=== PATIENT | male | born 1945 | race Caucasian/White ===

== ENCOUNTER 2019-03-28 20:17 | Emergency (ER) | payer MEDICARE ==
--- NOTE | 2019-03-28 20:47 | ER Document Report ---
ED Medical Screen (RME) - General Chief Complaint: Urinary Problem Stated Complaint: URINATING BLOOD Time Seen by Provider: 03/28/19 20:41 Primary Care Provider: ASHLI HOLDEN MD [Primary Care Provider] - Follow up as needed Mode of Arrival: Wheelchair Information source: Patient Notes: 73-year-old male presented to ED for complaint of blood in his urine. He states this started this afternoon. He states he had his prostate scraped and bladder clamps placed on 02/10/2019, he had a heart cath and 2 stents placed on Sunday. The urinary bleeding started today. He states in November of this year he weighed 243 last week he weighed 223 and today he weighs 212 he states he just continues to lose weight. He denies any pain or nausea or vomiting he just does not feel good. He states he also has swelling to his left lower abdomen. He has no tenderness to palpation to this abdomen. Patient is alert oriented respirations regular and unlabored answering questions appropriately. I have greeted and performed a rapid initial assessment of this patient. A comprehensive ED assessment and evaluation of the patient, analysis of test results and completion of medical decision making process will be conducted by an additional ED providers. Dictation of this chart was performed using voice recognition software; therefore, there may be some unintended grammatical errors. TRAVEL OUTSIDE OF THE [place] IN LAST 30 DAYS: No - Related Data Allergies/Adverse Reactions: meperidine [From Demerol] Adverse Reaction (Verified 03/28/19 20:22) Physical Exam - Vital signs Vitals: Temp Pulse Resp BP Pulse Ox 97.8 F 81 18 92/59 L 97 03/28/19 20:27 03/28/19 20:27 03/28/19 20:27 03/28/19 20:27 03/28/19 20:27 Course - Vital Signs Vital signs: Temp Pulse Resp BP Pulse Ox 97.8 F 81 18 92/59 L 97 03/28/19 20:27 03/28/19 20:27 03/28/19 20:27 03/28/19 20:27 03/28/19 20:27 Doctor's Discharge - Discharge Referrals: ASHLI HOLDEN MD [Primary Care Provider] - Follow up as needed
[2019-03-28] MEDS ORDERED: NORMAL SALINE 1000 ML 1,000 ML IV ONE (20:56)
[2019-03-28 21:16] LABS: ABSOLUTE BASOPHILS # (AUTO) 0.2 10^3/uL (0.0-0.2); ABSOLUTE EOSINOPHILS # (AUTO) 0.4 10^3/uL (0.0-0.6); ABSOLUTE LYMPHOCYTES (AUTO) 4.7 10^3/uL (0.5-4.7); ABSOLUTE NEUT (AUTO) 9.7 10^3/uL (1.7-8.2); BASOPHILS % (AUTO) 1.1 % (0-2); EOSINOPHILS % (AUTO) 2.6 % (0-6); HEMATOCRIT 44.2 % (37.9-51.0); HEMOGLOBIN 14.7 g/dL (13.5-17.0); LYMPHOCYTES % (AUTO) 29.5 % (13-45); MEAN CORPUSCULAR HEMOGLOBIN 28.7 pg (27.0-33.4); MEAN CORPUSCULAR HGB CONC 33.2 g/dL (32.0-36.0); MEAN CORPUSCULAR VOLUME 87 fl (80-97); MONOCYTES % (AUTO) 6.2 % (3-13); PLATELET COUNT 382 10^3/uL (150-450); RED CELL DISTRIBUTION WIDTH 14.4 % (11.5-14.0); SEGMENTED NEUTROPHILS % (AUTO) 60.6 % (42-78); TOTAL CELLS COUNTED % (AUTO) 100 %
[2019-03-28 21:36] LABS: ALANINE AMINOTRANSFERASE 19 U/L (21-72); ALBUMIN 4.4 g/dL (3.5-5.0); ALKALINE PHOSPHATASE 111 U/L (38-126); ANION GAP 15 (5-19); ASPARTATE AMINO TRANSFERASE 25 U/L (17-59); BILIRUBIN,DIRECT 0.2 mg/dL (0.0-0.4); BILIRUBIN,TOTAL 0.3 mg/dL (0.2-1.3); BLOOD UREA NITROGEN 20 mg/dL (7-20); CARBON DIOXIDE 23 mmol/L (22-30); CHLORIDE 104 mmol/L (98-107); GLUCOSE 210 mg/dL (75-110); POTASSIUM 4.9 mmol/L (3.6-5.0); SODIUM 141.5 mmol/L (137-145); TOTAL PROTEIN 7.4 g/dL (6.3-8.2)
--- NOTE | 2019-03-28 21:38 | ER Document Report ---
ED GI/ - General Chief Complaint: Urinary Problem Stated Complaint: URINATING BLOOD Time Seen by Provider: 03/28/19 20:41 Primary Care Provider: ASHLI HOLDEN MD [Primary Care Provider] - Follow up as needed Mode of Arrival: Wheelchair Notes: Patient is a 73-year-old male that comes to the emergency department for chief complaint of blood in the urine. Started this afternoon, he states he urinated 3 times this afternoon and all of these episodes were grossly bloody. He reports having his prostate scraped and bladder clamps placed on 02/10/2019, he also had a cardiac catheterization and 2 stents placed on Sunday and was placed on Plavix at that time. He states he generally just does not feel good but he denies nausea, vomiting, abdominal pain. The Urologist was reportedly Dr. Kahn, Matchbook Assembler was Dr. Brown, both at [facility]. Medical history includes BPH, CAD, hypertension, insulin dependent diabetes. TRAVEL OUTSIDE OF THE [place] IN LAST 30 DAYS: No - Related Data Allergies/Adverse Reactions: meperidine [From Demerol] Adverse Reaction (Verified 03/28/19 20:22) Past Medical History - General Information source: Patient, Relative - Social History Smoking Status: Never Smoker Chew tobacco use (# tins/day): No Frequency of alcohol use: None Drug Abuse: None Lives with: Family Family History: Reviewed & Not Pertinent Patient has suicidal ideation: No Patient has homicidal ideation: No - Past Medical History Cardiac Medical History: Reports: Hx Coronary Artery Disease, Hx Hypercholesterolemia, Hx Hypertension Endocrine Medical History: Reports: Hx Diabetes Mellitus Type 2 Renal/ Medical History: Denies: Hx Peritoneal Dialysis Past Surgical History: Reports: Hx Cardiac Catheterization, Hx Urinary Tract Surgery - Prostate scraping and bladder stents Review of Systems - Review of Systems Constitutional: No symptoms reported EENT: No symptoms reported Cardiovascular: No symptoms reported Respiratory: No symptoms reported Gastrointestinal: No symptoms reported Genitourinary: See HPI Male Genitourinary: No symptoms reported Musculoskeletal: No symptoms reported Skin: No symptoms reported Hematologic/Lymphatic: No symptoms reported Neurological/Psychological: No symptoms reported Physical Exam - Vital signs Vitals: Temp Pulse Resp BP Pulse Ox 97.8 F 81 18 92/59 L 97 03/28/19 20:27 03/28/19 20:27 03/28/19 20:27 03/28/19 20:27 03/28/19 20:27 - Notes Notes: GENERAL: Alert, interacts well. No acute distress. HEAD: Normocephalic, atraumatic. EYES: Pupils equal, round, and reactive to light. Extraocular movements intact. ENT: Oral mucosa moist, tongue midline. Oropharynx unremarkable. Airway patent. NECK: Full range of motion. Supple. Trachea midline. LUNGS: Clear to auscultation bilaterally, no wheezes, rales, or rhonchi. No respiratory distress. HEART: Regular rate and rhythm. No murmur ABDOMEN: Soft, non-tender. Non-distended. Bowel sounds present in all 4 quadrants. GENITOURINARY: Small amount of dried blood in the briefs, no current bleeding, no other concerning findings noted. EXTREMITIES: Moves all 4 extremities spontaneously. No edema, normal radial and dorsalis pedis pulses bilaterally. No cyanosis. BACK: no cervical, thoracic, lumbar midline tenderness. No saddle anesthesia, normal distal neurovascular exam. Moves all extremities in full range of motion. NEUROLOGICAL: Alert and oriented x3. Normal speech. Cranial nerves II through XII grossly intact. PSYCH: Normal affect, normal mood. SKIN: Warm, dry, normal turgor. No rashes or lesions noted. Course - Re-evaluation Re-evalutation: CBC shows leukocytosis, nonspecific because patient is well-appearing on exam with a soft benign abdomen. There is no anemia. Chemistry shows hyperglycemia without acidosis. Urine shows rene hematuria. Patient is still urinating without difficulty, no signs of obstruction, had only one tiny clot earlier. However he is not bleeding persistently, he only has blood when he urinates. Concerned because patient is started bleeding after being initiated on Plavix, however he just had stents performed and might not be able to hold the Plavix. I discussed with Dr. Mendoza, will discuss with [facility]. Discussed results with family in detail. Spoke to Dr. Rae, urologist contact lens inspector. Discussed patient's procedures, recently being initiated on Plavix, concern over stopping the Plavix because of recent cardiac stents. He states that because the Plavix will remain in his system for the next 5 days that he recommends patient stop this for 2 days, take finasteride, drink plenty fluids, avoid any significant activity, and then follow-up after the 2 days in the office on Sunday with Dr. Kahn. I did discuss this at length with patient and family, they asked a lot of questions, I answered them to the best my ability. They asked to be sent home with urinals so he can avoid getting up if possible. I discussed the details, follow-up, and return precautions at length. They state understanding and agreement with plan. Stable at time of discharge. - Vital Signs Vital signs: Temp Pulse Resp BP Pulse Ox 98.2 F 81 12 122/62 95 03/28/19 23:01 03/28/19 20:27 03/28/19 23:01 03/28/19 23:01 03/28/19 23:01 - Laboratory Result Diagrams: 03/28/19 20:51 03/28/19 20:51 Laboratory results interpreted by me: 03/28/19 03/28/19 03/28/19 20:51 20:51 20:51 WBC 16.0 H RDW 14.4 H Absolute Neutrophils 9.7 H Glucose 210 H ALT 19 L Urine Protein >=500 H Urine Glucose (UA) >=500 H Urine Blood LARGE H Discharge - Discharge Clinical Impression: Hematuria Qualifiers: Hematuria type: gross Qualified Code(s): R31.0 - Gross hematuria Condition: Stable Disposition: HOME, SELF-CARE Additional Instructions: I spoke with Dr. Kyra cox, Urology contact lens inspector for Dr. Kahn at [facility]. Based on his evaluation the recommendation is that he hold the Plavix for the next 2 days (hold on Sunday and Sunday), take the 5 mg of finasteride daily, drink plenty fluids, avoid any significant physical exertion/activity, and then call Sunday to be seen in the office with Dr. Kahn. Return if you worsen (inability to urinate, abdominal pain, dizziness, passing out, fever, or any other concerning or worsening symptoms). Referrals: ASHLI HOLDEN MD [Primary Care Provider] - Follow up as needed
[2019-03-28 21:44] LABS: INTERNATIONAL RATION (INR) 0.94; PROTHROMBIN TIME 12.5 SEC (11.4-15.4)
[2019-03-28 21:45] LABS: PARTIAL THROMBOPLASTIN TIME 34.5 SEC (23.5-35.8)
[2019-03-28 22:12] LABS: BILIRUBIN,URINE NEGATIVE (NEGATIVE); GLUCOSE, URINE >=500 mg/dL (NEGATIVE); KETONES,URINE NEGATIVE (NEGATIVE); LEUKOCYTE ESTERASE,URINE NEGATIVE (NEGATIVE); NITRITE,URINE NEGATIVE (NEGATIVE); PROTEIN,URINE >=500 mg/dL (NEGATIVE); URINE SPECIFIC GRAVITY 1.028; UROBILINOGEN,URINE NEGATIVE mg/dL (<2.0)
[2019-03-28 22:19] LABS: APPEARANCE,URINE TURBID; COLOR,URINE RED
[2019-03-28 23:38] VITALS: BP 122/62
== END 2019-03-28 23:58 | disposition home or self-care (01) ==
LOC: ER 20:17
DX: R31.0 Gross hematuria (principal); I25.10 Atherosclerotic heart disease of native coronary artery without angina pectoris; E78.00 Pure hypercholesterolemia, unspecified; I10 Essential (primary) hypertension; E11.9 Type 2 diabetes mellitus without complications; Z79.02 Long term (current) use of antithrombotics/antiplatelets
CPT/HCPCS: 99283; 96360; 96361; 86900; 86901; 36415; 87086; 86850; 85025; 85610; 85730; 80053; 81001; J7030

== ENCOUNTER 2019-03-31 12:42 | Emergency (ER) | payer MEDICARE ==
[2019-03-31] MEDS ORDERED: LIDOCAINE 2% URO-JET 5 ML KIT MM ONE (13:12)
--- NOTE | 2019-03-31 13:15 | ER Document Report ---
ED Medical Screen (RME) - General Chief Complaint: Urinary Problem Stated Complaint: URINARY PROBLEMS Time Seen by Provider: 03/31/19 13:06 Primary Care Provider: ASHLI HOLDEN MD [Primary Care Provider] - Follow up as needed Mode of Arrival: Wheelchair Information source: Patient, Relative Notes: Patient presents complaining of hematuria for the past 4 days. Patient was supposed to obtain an outpatient urine specimen but was able to void since 3:00 this morning. Patient does also report chest pain that started around 3:00 this morning as well with occasional shortness of breath. Patient had been on Plavix for cardiac stents but has not been on the medication for the past several days due to the hematuria. Patient denies any abdominal pain or back pain. hx: Diabetes, hypothyroidism, CAD, prostate and bladder surgery, cardiac stents I have greeted and performed a rapid initial assessment of this patient. A comprehensive ED assessment and evaluation of the patient, analysis of test results and completion of the medical decision making process will be conducted by additional ED providers. TRAVEL OUTSIDE OF THE [place] IN LAST 30 DAYS: No - Related Data Allergies/Adverse Reactions: meperidine [From Demerol] Adverse Reaction (Verified 03/31/19 12:43) Past Medical History - Past Medical History Cardiac Medical History: Reports: Hx Coronary Artery Disease, Hx Hypercholesterolemia, Hx Hypertension Endocrine Medical History: Reports: Hx Diabetes Mellitus Type 2 Renal/ Medical History: Denies: Hx Peritoneal Dialysis Past Surgical History: Reports: Hx Cardiac Catheterization, Hx Urinary Tract Surgery - Prostate scraping and bladder stents Physical Exam - Vital signs Vitals: Temp Pulse Resp BP Pulse Ox 97.7 F 57 L 16 112/68 97 03/31/19 12:47 03/31/19 12:47 03/31/19 12:47 03/31/19 12:47 03/31/19 12:47 - General General appearance: Appears well, Alert - Respiratory Respiratory status: No respiratory distress Course - Vital Signs Vital signs: Temp Pulse Resp BP Pulse Ox 97.7 F 57 L 16 112/68 97 03/31/19 12:47 03/31/19 12:47 03/31/19 12:47 03/31/19 12:47 03/31/19 12:47 Doctor's Discharge - Discharge Referrals: ASHLI HOLDEN MD [Primary Care Provider] - Follow up as needed
[2019-03-31 13:57] LABS: ABSOLUTE BASOPHILS # (AUTO) 0.2 10^3/uL (0.0-0.2); ABSOLUTE EOSINOPHILS # (AUTO) 0.4 10^3/uL (0.0-0.6); ABSOLUTE LYMPHOCYTES (AUTO) 4.2 10^3/uL (0.5-4.7); ABSOLUTE MONOCYTES (AUTO) 0.8 10^3/uL (0.1-1.4); ABSOLUTE NEUT (AUTO) 8.6 10^3/uL (1.7-8.2); BASOPHILS % (AUTO) 1.2 % (0-2); HEMATOCRIT 43.6 % (37.9-51.0); HEMOGLOBIN 14.4 g/dL (13.5-17.0); LYMPHOCYTES % (AUTO) 29.3 % (13-45); MEAN CORPUSCULAR HEMOGLOBIN 28.4 pg (27.0-33.4); MEAN CORPUSCULAR VOLUME 86 fl (80-97); MONOCYTES % (AUTO) 5.8 % (3-13); PLATELET COUNT 367 10^3/uL (150-450); RED BLOOD COUNT 5.06 10^6/uL (4.35-5.55); RED CELL DISTRIBUTION WIDTH 14.3 % (11.5-14.0); SEGMENTED NEUTROPHILS % (AUTO) 60.7 % (42-78); TOTAL CELLS COUNTED % (AUTO) 100 %; WHITE BLOOD COUNT 14.2 10^3/uL (4.0-10.5)
[2019-03-31 14:05] LABS: INTERNATIONAL RATION (INR) 0.97; PROTHROMBIN TIME 12.9 SEC (11.4-15.4)
[2019-03-31 14:15] LABS: ALANINE AMINOTRANSFERASE 16 U/L (21-72); ALBUMIN 4.6 g/dL (3.5-5.0); ALKALINE PHOSPHATASE 103 U/L (38-126); ANION GAP 10 (5-19); ASPARTATE AMINO TRANSFERASE 28 U/L (17-59); BILIRUBIN,DIRECT 0.3 mg/dL (0.0-0.4); BILIRUBIN,TOTAL 0.6 mg/dL (0.2-1.3); BLOOD UREA NITROGEN 21 mg/dL (7-20); CALCIUM 9.6 mg/dL (8.4-10.2); CARBON DIOXIDE 29 mmol/L (22-30); CHLORIDE 103 mmol/L (98-107); GLUCOSE 155 mg/dL (75-110); POTASSIUM 5.1 mmol/L (3.6-5.0); SODIUM 141.5 mmol/L (137-145); TOTAL PROTEIN 8.3 g/dL (6.3-8.2)
--- NOTE | 2019-03-31 14:58 | RADIOLOGY REPORT (SQ) ---
EXAM DESCRIPTION: CHEST 2 VIEWS COMPLETED DATE/TIME: 03/31/2019 2:32 pm REASON FOR STUDY: cp COMPARISON: None. EXAM PARAMETERS: NUMBER OF VIEWS: two views TECHNIQUE: Digital Frontal and Lateral radiographic views of the chest acquired. RADIATION DOSE: NA LIMITATIONS: none FINDINGS: LUNGS AND PLEURA: 5 mm calcified granuloma left lung. No evidence of pulmonary edema or p neumonia. No pneumothorax. No pleural effusion. MEDIASTINUM AND HILAR STRUCTURES: No masses or contour abnormalities. HEART AND VASCULAR STRUCTURES: Heart normal size. No evidence for failure. BONES: No acute findings. HARDWARE: None in the chest. OTHER: No other significant finding. IMPRESSION: NO ACUTE RADIOGRAPHIC FINDING IN THE CHEST. TECHNICAL DOCUMENTATION: JOB ID: [id number] [employer]- All Rights Reserved Reading location - IP/workstation name: [email or web address]
[2019-03-31 15:56] LABS: APPEARANCE,URINE CLOUDY; BILIRUBIN,URINE NEGATIVE (NEGATIVE); COLOR,URINE AMBER; GLUCOSE, URINE >=500 mg/dL (NEGATIVE); KETONES,URINE NEGATIVE (NEGATIVE); LEUKOCYTE ESTERASE,URINE NEGATIVE (NEGATIVE); NITRITE,URINE NEGATIVE (NEGATIVE); PROTEIN,URINE 100 mg/dL (NEGATIVE); UROBILINOGEN,URINE NEGATIVE mg/dL (<2.0)
[2019-03-31] MEDS ORDERED: CEFTRIAXONE 1 GM/D5W RTU 1 GM/50 ML RTUPB IV ONE (18:40)
--- NOTE | 2019-03-31 21:58 | ER Document Report ---
ED General - General Chief Complaint: Chest Pain Stated Complaint: URINARY PROBLEMS Time Seen by Provider: 03/31/19 13:06 Primary Care Provider: ASHLI HOLDEN MD [Primary Care Provider] - Follow up as needed Mode of Arrival: Wheelchair TRAVEL OUTSIDE OF THE [place] IN LAST 30 DAYS: No - HPI Notes: Patient is a 73-year-old male with multiple medical issues, who is a very poor historian. In short, the patient had prostate surgery performed a few weeks ago. He has been having ongoing chest pain for some time, and was seen on March 21, had a drug-eluting stent placed in the LAD. Shortly afterward, about a week, he developed hematuria. He was seen in the emergency department. Recommendation at that point was made that the patient hold his Plavix. The patient did not take any Plavix on Sunday or Sunday. He went saw his primary care doctor today. Primary care physician recommended urinalysis. Patient was unable to provide a urine sample in the lab, unable to fully urinate, so he was sent to the emergency department for evaluation. Here he had a Caba catheter placed, labs obtained. Patient states he has had some chest pain. On qu estioning the patient states he has had chest pressure every day upon waking for several years. He states his pain is the same as before his stent placement. He denies any associated shortness of breath, nausea, diaphoresis, near syncope. He has had no fever or chills. - Related Data Allergies/Adverse Reactions: meperidine [From Demerol] Adverse Reaction (Verified 03/31/19 12:43) Past Medical History - General Information source: Patient, Relative - Social History Smoking Status: Current Some Day Smoker Frequency of alcohol use: None Drug Abuse: None Family History: Reviewed & Not Pertinent Patient has suicidal ideation: No Patient has homicidal ideation: No - Past Medical History Cardiac Medical History: Reports: Hx Coronary Artery Disease, Hx Hypercholesterolemia, Hx Hypertension Comment Only: Hx Heart Attack - "possible" hx Endocrine Medical History: Reports: Hx Diabetes Mellitus Type 2 Renal/ Medical History: Reports: Hx Benign Prostatic Hyperplasia. Denies: Hx Peritoneal Dialysis Past Surgical History: Reports: Hx Cardiac Catheterization, Hx Urinary Tract Surgery - Prostate scraping and bladder stents Review of Systems - Review of Systems Constitutional: No symptoms reported EENT: No symptoms reported Cardiovascular: See HPI Respiratory: No symptoms reported Gastrointestinal: No symptoms reported Genitourinary: See HPI Musculoskeletal: No symptoms reported Skin: No symptoms reported Neurological/Psychological: No symptoms reported Physical Exam - Vital signs Vitals: Temp Pulse Resp BP Pulse Ox 97.7 F 57 L 16 112/68 97 03/31/19 12:47 03/31/19 12:47 03/31/19 12:47 03/31/19 12:47 03/31/19 12:47 - Notes Notes: Vital signs reviewed, please refer to chart. Head is normocephalic, atraumatic. Pupils equal round, reactive to light. Neck is supple without meningismus. Heart is regular rate and rhythm. Lungs are clear to auscultation bilaterally. Abdomen is soft, nontender, normoactive bowel sounds throughout. Extremities without cyanosis, clubbing. Posterior calves are nontender. Peripheral pulses are equal. Skin is warm and dry. Patient is awake, alert, neurological exam is nonfocal. Course - Re-evaluation Re-evalutation: 03/31/19 21:56 Patient presents emergency department for evaluation. He is a very difficult historian. He was placed on a library monitor, laboratory investigations were obtained. Caba catheter was placed as the patient was unable to urinate. He did have good output of grossly bloody urine. Patient had largely unremarkable laboratory investigations. His hemoglobin was stable from Sunday. His urine revealed large blood without an over abundance of white blood cells. It was nitrite negative. Culture was obtained. Patient was given IV Rocephin. Patient had cardiac enzymes negative x2. I spoke with Dr. Holden at 2014. He explained that he did not believe that the patient required admission at this time. His hemoglobin is stable. He believes that antibiotics are appropriate. He believes that the patient needs to follow-up with his urologist, Dr. tanner, tomorrow. I spoke with Dr. Brown, patient's traffic ii manager at [facility] at 2129. The story was explained in great detail. Patient does not fact have a drug-eluting stent in his LAD. He should be taking his aspirin and Plavix. In fact, Dr. Brown stated "unless he is in danger of imminent from hemorrhage, he should continue aspirin and Plavix." This was explained to the patient and his family. At this point, the patient can be seen by his urologist tomorrow. His hemoglobin is stable. He is being treated empirically for infection, will send him home with Keflex. We discussed the possibility of Cipro, but the patient has never been on a flouroquinolone. He can start Keflex tomorrow morning. He is to return to the ED with worsening or new concerning symptoms of any sort. - Vital Signs Vital signs: Temp Pulse Resp BP Pulse Ox 97.7 F 57 L 11 L 138/68 H 100 03/31/19 12:47 03/31/19 12:47 03/31/19 21:01 03/31/19 21:01 03/31/19 21:01 - Laboratory Result Diagrams: 03/31/19 13:40 03/31/19 13:40 Laboratory results interpreted by me: 03/31/19 03/31/19 03/31/19 13:40 13:40 15:15 WBC 14.2 H RDW 14.3 H Absolute Neutrophils 8.6 H Potassium 5.1 H BUN 21 H Glucose 155 H ALT 16 L Total Protein 8.3 H Urine Protein 100 H Urine Glucose (UA) >=500 H Urine Blood LARGE H - Diagnostic Test Radiology reviewed: Reports reviewed Radiology results interpreted by me: 03/31/19 21:56 Chest X-Ray 03/31/19 13:12 IMPRESSION: NO ACUTE RADIOGRAPHIC FINDING IN THE CHEST. - EKG Interpretation by Me Additional EKG results interpreted by me: 03/31/19 21:58 Sinus mechanism with a rate of 67 bpm. Normal axis and intervals, no acute ST changes concerning for ischemia or infarction. No old studies available for comparison. Discharge - Discharge Clinical Impression: Atypical chest pain, Hematuria Condition: Stable Disposition: HOME, SELF-CARE Instructions: Hematuria ([facility]), Caba Catheter Care ([facility]) Additional Instructions: Restart the aspirin and Plavix immediately. Start antibiotics tomorrow. Follow-up with urology tomorrow. If you develop worsening or new concerning symptoms of any sort, return immediately to the emergency department for reevaluation. Referrals: ASHLI HOLDEN MD [Primary Care Provider] - Follow up as needed
[2019-03-31 22:06] VITALS: BP 115/66
--- NOTE | 2019-04-01 00:40 | EKG REPORT ---
SEVERITY:- ABNORMAL ECG - SINUS RHYTHM NONSPECIFIC T ABNORMALITIES, LATERAL LEADS : Confirmed by: Sendy Murphy 01-Apr-2019 00:38:52
== END 2019-03-31 22:45 | disposition home or self-care (01) ==
LOC: ER 12:42
DX: R07.89 Other chest pain (principal); R31.9 Hematuria, unspecified; F17.200 Nicotine dependence, unspecified, uncomplicated; I25.10 Atherosclerotic heart disease of native coronary artery without angina pectoris; E78.00 Pure hypercholesterolemia, unspecified; I10 Essential (primary) hypertension; E11.9 Type 2 diabetes mellitus without complications; Z79.01 Long term (current) use of anticoagulants; Z79.82 Long term (current) use of aspirin; Z98.890 Other specified postprocedural states
CPT/HCPCS: 93005; 99285; 51702; 96365; 36415; 87086; 85025; 85610; 85730; 80053; 81001; 84484; 71046; 93010; J0696; A9270; J3490

== ENCOUNTER → 2019-07-18 | Outpatient (CLI) | payer MEDICARE ==
[2019-07-18 12:36] LABS: ABSOLUTE BASOPHILS # (AUTO) 0.1 10^3/uL (0.0-0.2); ABSOLUTE EOSINOPHILS # (AUTO) 0.3 10^3/uL (0.0-0.6); ABSOLUTE LYMPHOCYTES (AUTO) 5.3 10^3/uL (0.5-4.7); ABSOLUTE MONOCYTES (AUTO) 0.7 10^3/uL (0.1-1.4); ABSOLUTE NEUT (AUTO) 4.5 10^3/uL (1.7-8.2); BASOPHILS % (AUTO) 1.1 % (0-2); EOSINOPHILS % (AUTO) 3.1 % (0-6); HEMATOCRIT 40.5 % (37.9-51.0); HEMOGLOBIN 13.1 g/dL (13.5-17.0); LYMPHOCYTES % (AUTO) 48.2 % (13-45); MEAN CORPUSCULAR HGB CONC 32.3 g/dL (32.0-36.0); MEAN CORPUSCULAR VOLUME 80 fl (80-97); MONOCYTES % (AUTO) 6.8 % (3-13); PLATELET COUNT 319 10^3/uL (150-450); RED BLOOD COUNT 5.04 10^6/uL (4.35-5.55); RED CELL DISTRIBUTION WIDTH 15.1 % (11.5-14.0); SEGMENTED NEUTROPHILS % (AUTO) 40.8 % (42-78); TOTAL CELLS COUNTED % (AUTO) 100 %; WHITE BLOOD COUNT 10.9 10^3/uL (4.0-10.5)
== END ==
LOC: OD 11:17
PROVIDERS: ATTEND Internal Medicine Pulmonary Disease
DX: R91.8 Other nonspecific abnormal finding of lung field (principal)
CPT/HCPCS: 36415; 82785; 85025; 87449

== ENCOUNTER 2019-09-14 10:18 | Emergency (ER) | payer MEDICARE ==
[2019-09-14 11:00] LABS: ABSOLUTE BASOPHILS # (AUTO) 0.1 10^3/uL (0.0-0.2); ABSOLUTE EOSINOPHILS # (AUTO) 0.5 10^3/uL (0.0-0.6); ABSOLUTE LYMPHOCYTES (AUTO) 4.8 10^3/uL (0.5-4.7); ABSOLUTE MONOCYTES (AUTO) 0.7 10^3/uL (0.1-1.4); ABSOLUTE NEUT (AUTO) 5.6 10^3/uL (1.7-8.2); BASOPHILS % (AUTO) 0.5 % (0-2); EOSINOPHILS % (AUTO) 4.3 % (0-6); HEMATOCRIT 38.9 % (37.9-51.0); HEMOGLOBIN 12.4 g/dL (13.5-17.0); LYMPHOCYTES % (AUTO) 41.3 % (13-45); MEAN CORPUSCULAR HEMOGLOBIN 25.2 pg (27.0-33.4); MEAN CORPUSCULAR VOLUME 79 fl (80-97); MONOCYTES % (AUTO) 6.4 % (3-13); PLATELET COUNT 272 10^3/uL (150-450); RED BLOOD COUNT 4.94 10^6/uL (4.35-5.55); SEGMENTED NEUTROPHILS % (AUTO) 47.5 % (42-78); TOTAL CELLS COUNTED % (AUTO) 100 %; WHITE BLOOD COUNT 11.7 10^3/uL (4.0-10.5)
[2019-09-14 11:21] LABS: ALBUMIN 3.6 g/dL (3.5-5.0); ALKALINE PHOSPHATASE 105 U/L (38-126); ANION GAP 12 (5-19); ASPARTATE AMINO TRANSFERASE 22 U/L (17-59); BILIRUBIN,DIRECT 0.1 mg/dL (0.0-0.4); BILIRUBIN,TOTAL 0.3 mg/dL (0.2-1.3); BLOOD UREA NITROGEN 19 mg/dL (7-20); CALCIUM 9.4 mg/dL (8.4-10.2); CARBON DIOXIDE 26 mmol/L (22-30); CHLORIDE 104 mmol/L (98-107); CREATINE KINASE 24 U/L (55-170); GLUCOSE 109 mg/dL (75-110); POTASSIUM 3.7 mmol/L (3.6-5.0); TOTAL PROTEIN 6.6 g/dL (6.3-8.2)
[2019-09-14 11:32] LABS: CREATINE KINASE MB 0.69 ng/mL (<4.55)
[2019-09-14 11:34] LABS: TROPONIN I < 0.012 ng/mL
[2019-09-14] MEDS ORDERED: NORMAL SALINE 1000 ML 1,000 ML IV ONE ×2 (11:38→16:01)
--- NOTE | 2019-09-14 11:43 | ER Document Report ---
ED Syncope and Near Syncope - General Chief Complaint: Syncope Stated Complaint: POSSIBLE SYNCOPE Time Seen by Provider: 09/14/19 11:14 Primary Care Provider: ASHLI HOLDEN MD [Primary Care Provider] - Follow up as needed Notes: History is a 74-year-old gentleman with past medical history of CHF, dementia, urinary insufficiency, and orthostatic hypotension brought into the ED by daughter after witnessed syncopal episode. Patient was being cleaned by the daughter after having a bowel movement. She states she just finished cleaning him when he started falling posteriorly onto her. She was able to lower him to the ground. He did not hit his head or crash to the ground. She states he was breathing with normal pulse ox but seemed unconscious for approximately 5 minutes. He awoke and was speaking normally without any issues after. He did have one episode of loose diarrhea while being unconscious all over himself in the ground. Patient denies any presyncopal symptoms such as dizziness, shortness of breath, chest pain or abdominal pain. He does endorse some straining with defecation. TRAVEL OUTSIDE OF THE [place] IN LAST 30 DAYS: No - Related Data Allergies/Adverse Reactions: meperidine [From Demerol] Adverse Reaction (Verified 03/31/19 12:43) Past Medical History - General Information source: Patient, Relative - Daughter - Social History Smoking Status: Never Smoker Family History: Reviewed & Not Pertinent Patient has suicidal ideation: No Patient has homicidal ideation: No - Past Medical History Cardiac Medical History: Reports: Hx Coronary Artery Disease, Hx Hypercholesterolemia, Hx Hypertension Comment Only: Hx Heart Attack - "possible" hx Endocrine Medical History: Reports: Hx Diabetes Mellitus Type 2 Renal/ Medical History: Reports: Hx Benign Prostatic Hyperplasia. Denies: Hx Peritoneal Dialysis Past Surgical History: Reports: Hx Cardiac Catheterization, Hx Urinary Tract Surgery - Prostate scraping and bladder stents Review of Systems - Review of Systems Constitutional: See HPI EENT: No symptoms reported Cardiovascular: No symptoms reported Respiratory: No symptoms reported Gastrointestinal: No symptoms reported Genitourinary: No symptoms reported Male Genitourinary: No symptoms reported Musculoskeletal: No symptoms reported Skin: No symptoms reported Hematologic/Lymphatic: No symptoms reported Neurological/Psychological: See HPI Physical Exam - Vital signs Vitals: Temp 97.5 F 09/14/19 10:18 Interpretation: Bradycardic - General General appearance: Appears well, Alert - HEENT Head: Normocephalic, Atraumatic Eyes: Normal Pupils: PERRL Neck: Other - No midline tenderness. Healing incision. C-collar in place. - Respiratory Respiratory status: No respiratory distress Chest status: Nontender Breath sounds: Normal Chest palpation: Normal - Cardiovascular Rhythm: Regular Heart sounds: Normal auscultation Murmur: No - Abdominal Inspection: Normal Distension: No distension Bowel sounds: Normal Tenderness: Nontender Organomegaly: No organomegaly - Back Back: Normal, Nontender - Extremities General upper extremity: Normal inspection, Nontender, Normal color, Normal ROM, Normal temperature General lower extremity: Normal inspection, Nontender, Normal color, Normal ROM, Normal temperature, Normal weight bearing. No: Yosi's sign - Neurological Neuro grossly intact: Yes Cognition: Normal Orientation: AAOx4 [place] Coma Scale Eye Opening: Spontaneous [place] Coma Scale Verbal: Oriented [place] Coma Scale Motor: Obeys Commands Dotty Coma Scale Total: 15 Speech: Normal Motor strength normal: LUE, RUE, LLE, RLE Sensory: Normal - Psychological Associated symptoms: Normal affect, Normal mood - Skin Skin Temperature: Warm Skin Moisture: Dry Skin Color: Normal Course - Re-evaluation Re-evalutation: Patient is generally well-appearing and nontoxic. 09/14/19 11:39 Patient being cleaned by nursing staff prior to going to CT given the episode of involuntary diarrhea after the syncopal episode. CBC will for very mild leukocytosis 11.7 without a left shift. H&H is stable. CMP is unremarkable. Initial troponin is negative. EKG nonischemic. UA is also negative for infection. Patient remained somewhat bradycardic between 50s and low 60s throughout his entire stay in the ED. Orthostasis was performed and does show evidence of decrease of blood pressure from 156/72 with a pulse of 50 while laying down to 121/69 with a pulse of 69 when stood up. Patient likely orthostatic. Could also be related to the straining with defecation. Patient given a total of 2 L of fluid here in the ED. Repeat troponin will be ordered. 09/14/19 17:04 Repeat troponin is negative. UA also negative for infection. Likely syncopal episode related to orthostasis. Patient received a total of 2 L of fluid here in ED. Recommended he drink plenty of fluids and stay well-hydrated. Daughter and son-in-law given return precautions. - Vital Signs Vital signs: Temp Pulse Resp BP Pulse Ox 97.5 F 50 L 137/72 H 97 09/14/19 10:18 09/14/19 12:55 09/14/19 16:01 09/14/19 16:01 - Laboratory Result Diagrams: 09/14/19 09:48 09/14/19 09:48 Laboratory results interpreted by me: 09/14/19 09/14/19 09/14/19 09:48 09:48 16:10 WBC 11.7 H Hgb 12.4 L MCV 79 L MCH 25.2 L RDW 16.0 H Absolute Lymphs (auto) 4.8 H Creatine Kinase 24 L Urine Glucose (UA) >=500 H - EKG Interpretation by Me EKG shows normal: Sinus rhythm, QRS Complexes, ST-T Waves Rate: Bradycardia Rhythm: NSR Heart block present: 1st Degree When compared to previous EKG there are: No significant change Discharge - Discharge Clinical Impression: Orthostatic hypotension, Bradycardia Episode of syncope Qualifiers: Syncope type: unspecified Qualified Code(s): R55 - Syncope and collapse Condition: Good Disposition: HOME, SELF-CARE Instructions: Orthostatic Hypotension ([facility]), Syncopal Episode ([facility]) Additional Instructions: It is important that you drink plenty of fluids and stay well-hydrated. I would discuss reinitiation of the medication bethanechol with your primary care doctor before getting that filled. Make sure when you go to stand up, you allow several minutes from getting out of bed for your legs and blood flow to readjust and then stand up slowly. Return to the ED if you have any chest pain, trouble breathing, or any other episodes of passing out. Referrals: ASHLI HOLDEN MD [Primary Care Provider] - Follow up as needed
--- NOTE | 2019-09-14 12:37 | RADIOLOGY REPORT (SQ) ---
EXAM DESCRIPTION: CT HEAD WITHOUT COMPLETED DATE/TIME: 09/14/2019 12:26 pm REASON FOR STUDY: recent cervical fusion, fall COMPARISON: None. TECHNIQUE: Axial images acquired through the brain without intravenous contrast. Images reviewed wi th bone, brain and subdural windows. Additional sagittal and coronal reconstructions were generated. Images stored on PACS. All CT scanners at this facility use dose modulation, iterative reconstruction, and/or weight based d osing when appropriate to reduce radiation dose to as low as reasonably achievable (ALARA). [facility]: Dose Right [facility]: CareDose [facility]: Dose Right [facility]: Teradose 4D [facility]: Smart Technologies RADIATION DOSE: CT Rad equipment meets quality standard of care and radiation dose reduction techniq ues were employed. CTDIvol: 53.2 mGy. DLP: 964 mGy-cm.mGy. LIMITATIONS: None. FINDINGS: VENTRICLES: Prominent. CEREBRUM: No masses. No hemorrhage. No midline shift. Areas of low density in the white matter mos t likely due to chronic micro-vascular ischemic change. No evidence for acute infarction. CEREBELLUM: No masses. No hemorrhage. No alteration of density. No evidence for acute infarction. EXTRAAXIAL SPACES: Age-related involutional change. No fluid collections. No masses. ORBITS AND GLOBE: No intra- or extraconal masses. Normal contour of globe without masses. CALVARIUM: No fracture. PARANASAL SINUSES: No fluid or mucosal thickening. SOFT TISSUES: No mass or hematoma. OTHER: Bilateral mastoid fluid, right greater than left. No gross fracture. IMPRESSION: 1. Chronic atrophy and small vessel disease. 2. Bilateral mastoid effusions. EVIDENCE OF ACUTE STROKE: NO. TECHNICAL DOCUMENTATION: JOB ID: [id number] Quality ID # [id number]: Final reports with documentation of one or more dose reduction techniques (e.g., Au tomated exposure control, adjustment of the mA and/or kV according to patient size, use of iterative reconstruction technique) 2010 [employer]- All Rights Reserved Reading location - IP/workstation name: [email or web address]
--- NOTE | 2019-09-14 12:47 | RADIOLOGY REPORT (SQ) ---
EXAM DESCRIPTION: CT CERVICAL SPINE WITHOUT COMPLETED DATE/TIME: 09/14/2019 12:26 pm REASON FOR STUDY: recent cervical fusion, fall COMPARISON: None. TECHNIQUE: Axial images acquired through the cervical spine without intravenous contrast. Images re viewed with lung, soft tissue and bone windows. Reconstructed coronal and sagittal MPR images review ed. Images stored on PACS. All CT scanners at this facility use dose modulation, iterative reconstruction, and/or weight based d osing when appropriate to reduce radiation dose to as low as reasonably achievable (ALARA). [facility]: Dose Right [facility]: CareDose [facility]: Dose Right [facility]: Teradose 4D [facility]: [employer] LIMITATIONS: None. FINDINGS: ALIGNMENT: Anatomic. MINERALIZATION: Normal. VERTEBRAL BODIES: No fractures or dislocation. DISCS: Disc space narrowing, most pronounced at C6-7. Anterior ligament calcification spanning C3-4 and C5 mildly effacing the anterior CSF space. No high-grade central stenosis, however. Uncovertebr al spurring with multilevel foraminal encroachment. FACETS, LATERAL MASSES, POSTERIOR ELEMENTS: Multilevel facet arthropathy. VISUALIZED RIBS: No fractures. LUNG APICES AND SOFT TISSUES: No significant or acute findings. OTHER: C5-6 anterior instrumentation, grossly intact. IMPRESSION: Chronic degenerative and postoperative changes. No acute abnormality. COMMENT: Quality ID # [id number]: Final reports with documentation of one or more dose reduction techniques (e.g., Automated exposure control, adjustment of the mA and/or kV according to patient size, use of iterative reconstruction technique) TECHNICAL DOCUMENTATION: JOB ID: [id number] Reading location - IP/workstation name: [email or web address]
--- NOTE | 2019-09-14 13:01 | RADIOLOGY REPORT (SQ) ---
EXAM DESCRIPTION: CHEST SINGLE VIEW COMPLETED DATE/TIME: 09/14/2019 12:30 pm REASON FOR STUDY: syncope COMPARISON: 03/31/2019. EXAM PARAMETERS: NUMBER OF VIEWS: One view. TECHNIQUE: Single frontal radiographic view of the chest acquired. RADIATION DOSE: NA LIMITATIONS: None. FINDINGS: LUNGS AND PLEURA: No acute infiltrates or effusions. MEDIASTINUM AND HILAR STRUCTURES: No masses. Contour normal. HEART AND VASCULAR STRUCTURES: Normal heart and pulmonary vasculature. . BONES: Dorsal spondylosis. HARDWARE: None in the chest. OTHER: No other significant finding. IMPRESSION: NO ACUTE DISEASE. TECHNICAL DOCUMENTATION: JOB ID: [id number] 2010 [employer]- All Rights Reserved Reading location - IP/workstation name: [email or web address]
--- NOTE | 2019-09-14 15:49 | EKG REPORT ---
SEVERITY:- NORMAL ECG - SINUS RHYTHM : Confirmed by: Joseph Adair MD 14-Sep-2019 15:48:38
[2019-09-14 16:38] LABS: APPEARANCE,URINE CLEAR; BILIRUBIN,URINE NEGATIVE (NEGATIVE); COLOR,URINE YELLOW; GLUCOSE, URINE >=500 mg/dL (NEGATIVE); KETONES,URINE NEGATIVE (NEGATIVE); LEUKOCYTE ESTERASE,URINE NEGATIVE (NEGATIVE); NITRITE,URINE NEGATIVE (NEGATIVE); PROTEIN,URINE NEGATIVE (NEGATIVE); URINE SPECIFIC GRAVITY 1.025; UROBILINOGEN,URINE NEGATIVE mg/dL (<2.0)
[2019-09-14 16:41] VITALS: BP 137/72
== END 2019-09-14 17:16 | disposition home or self-care (01) ==
LOC: ER 10:18
DX: I95.1 Orthostatic hypotension (principal); R00.1 Bradycardia, unspecified; E11.9 Type 2 diabetes mellitus without complications; I50.9 Heart failure, unspecified; F03.90 Unspecified dementia, unspecified severity, without behavioral disturbance, psychotic disturbance, mood disturbance, and anxiety
CPT/HCPCS: 93005; 36415; 82553; 82550; 85025; 80053; 81001; 84484; 83880; 71045; 70450; 72125; 93010; J7030; 96360; 99284

== ENCOUNTER 2020-01-09 11:30 | Emergency (ER) | payer MEDICARE ==
--- NOTE | 2020-01-09 12:43 | ER Document Report ---
Entered by LACEY TAYLOR SCRIBE 01/09/20 1226 Acting as scribe for:TRENT GRANDE DO ED Respiratory Problem - General Chief Complaint: Cold Symptoms Stated Complaint: SHORTNESS OF BREATH Time Seen by Provider: 01/09/20 11:53 Primary Care Provider: ASHLI HOLDEN MD [Primary Care Provider] - Follow up as needed Mode of Arrival: Ambulatory Information source: Patient Notes: This 74 year old male patient presents to the emergency department today with complaints of a non-productive cough, shortness of breath on exertion, and nasal congestion. The patient also complains of left shoulder pain which has been present for months. The patient mentions that his daughter was concerned about a possible cardiac etiology, although as stated this has been present for months and it is exacerbated with range of motion. TRAVEL OUTSIDE OF THE [place] IN LAST 30 DAYS: No - Related Data Allergies/Adverse Reactions: meperidine [From Demerol] Adverse Reaction (Verified 01/09/20 11:39) Past Medical History - General Information source: Patient - Social History Smoking Status: Current Some Day Smoker Cigarette use (# per day): Yes Chew tobacco use (# tins/day): No Frequency of alcohol use: None Drug Abuse: None Lives with: Family Family History: Reviewed & Not Pertinent Patient has suicidal ideation: No Patient has homicidal ideation: No - Past Medical History Cardiac Medical History: Reports: Hx Coronary Artery Disease, Hx Hypercholesterolemia, Hx Hypertension Comment Only: Hx Heart Attack - "possible" hx Endocrine Medical History: Reports: Hx Diabetes Mellitus Type 2 Renal/ Medical History: Reports: Hx Benign Prostatic Hyperplasia Past Surgical History: Reports: Hx Cardiac Catheterization, Hx Urinary Tract Surgery - Prostate scraping and bladder stents Review of Systems - Review of Systems Constitutional: denies: Fever EENT: See HPI, Nose congestion Cardiovascular: No symptoms reported Respiratory: See HPI, Cough, Short of breath Gastrointestinal: No symptoms reported Genitourinary: No symptoms reported Male Genitourinary: No symptoms reported Musculoskeletal: See HPI, Joint pain - left shoulder Skin: No symptoms reported Hematologic/Lymphatic: No symptoms reported Neurological/Psychological: No symptoms reported -: Yes All other systems reviewed and negative Physical Exam - Vital signs Vitals: Temp Pulse Resp BP Pulse Ox 97.8 F 60 20 147/90 H 95 01/09/20 11:52 01/09/20 11:52 01/09/20 11:52 01/09/20 11:52 01/09/20 11:52 - Notes Notes: Physical Exam: General: Alert, appears well. HEENT: Normocephalic. Atraumatic. PERRL. Extraocular movements intact. Oropharynx clear. Neck: Supple. Non-tender. Respiratory: No respiratory distress. Clear and equal breath sounds bilaterally. Cardiovascular: Regular rate and rhythm. Abdominal: Normal Inspection. Non-tender. No distension. Normal Bowel Sounds. Back: No gross abnormalities. Extremities: Moves all four extremities. Upper extremities: Left shoulder pain with range of motion testing. Lower extremities: Trace peripheral edema. Normal ROM. Neurological: Normal cognition. AAOx4. Normal speech. Psychological: Normal affect. Normal Mood. Skin: Warm. Dry. Normal color. Course - Vital Signs Vital signs: Temp Pulse Resp BP Pulse Ox 97.8 F 60 20 147/90 H 95 01/09/20 11:52 01/09/20 11:52 01/09/20 11:52 01/09/20 11:52 01/09/20 11:52 - Laboratory Result Diagrams: 01/09/20 12:35 01/09/20 12:35 Laboratory results interpreted by me: 01/09/20 01/09/20 12:35 12:35 Hgb 11.9 L Hct 37.2 L MCV 76 L MCH 24.4 L RDW 15.4 H Chloride 108 H Glucose 215 H - Diagnostic Test Radiology reviewed: Image reviewed, Reports reviewed - EKG Interpretation by Me EKG shows normal: Sinus rhythm Rate: Normal Rhythm: NSR - NSR Nl Crane [address] elevaiton or depression my interpretation. Discharge - Discharge Clinical Impression: Cough Condition: Good Disposition: HOME, SELF-CARE Instructions: Cough Suppressant & Expectorant Medications Additional Instructions: See your doctor in follow up. Rest. Return here for chest pain, shortness of breath or other concerns. We uncovered no cardiac abnormlaity or evidence of congestive heart failure. Take over the counter claritin or zyrtec for the runny nose and there is cough medicine. Referrals: ASHLI HOLDEN MD [Primary Care Provider] - Follow up as needed I personally performed the services described in the documentation, reviewed and edited the documentation which was dictated to the scribe in my presence, and it accurately records my words and actions.
[2020-01-09 12:49] LABS: ABSOLUTE BASOPHILS # (AUTO) 0.1 10^3/uL (0.0-0.2); ABSOLUTE EOSINOPHILS # (AUTO) 0.3 10^3/uL (0.0-0.6); ABSOLUTE LYMPHOCYTES (AUTO) 2.4 10^3/uL (0.5-4.7); ABSOLUTE MONOCYTES (AUTO) 0.7 10^3/uL (0.1-1.4); ABSOLUTE NEUT (AUTO) 4.7 10^3/uL (1.7-8.2); BASOPHILS % (AUTO) 1.2 % (0-2); EOSINOPHILS % (AUTO) 3.5 % (0-6); HEMATOCRIT 37.2 % (37.9-51.0); HEMOGLOBIN 11.9 g/dL (13.5-17.0); LYMPHOCYTES % (AUTO) 29.4 % (13-45); MEAN CORPUSCULAR HEMOGLOBIN 24.4 pg (27.0-33.4); MEAN CORPUSCULAR VOLUME 76 fl (80-97); PLATELET COUNT 311 10^3/uL (150-450); RED BLOOD COUNT 4.89 10^6/uL (4.35-5.55); RED CELL DISTRIBUTION WIDTH 15.4 % (11.5-14.0); SEGMENTED NEUTROPHILS % (AUTO) 56.9 % (42-78); TOTAL CELLS COUNTED % (AUTO) 100 %; WHITE BLOOD COUNT 8.3 10^3/uL (4.0-10.5)
[2020-01-09 13:03] LABS: ALBUMIN 3.8 g/dL (3.5-5.0); ALKALINE PHOSPHATASE 110 U/L (38-126); ANION GAP 7 (5-19); ASPARTATE AMINO TRANSFERASE 24 U/L (17-59); BILIRUBIN,DIRECT 0.2 mg/dL (0.0-0.4); BILIRUBIN,TOTAL 0.2 mg/dL (0.2-1.3); BLOOD UREA NITROGEN 8 mg/dL (7-20); CALCIUM 9.2 mg/dL (8.4-10.2); CARBON DIOXIDE 24 mmol/L (22-30); CHLORIDE 108 mmol/L (98-107); GLUCOSE 215 mg/dL (75-110); POTASSIUM 4.1 mmol/L (3.6-5.0); TOTAL PROTEIN 6.6 g/dL (6.3-8.2)
[2020-01-09 13:10] LABS: A TYPE INFLUENZA AG NEGATIVE (NEGATIVE); B INFLUENZA AG NEGATIVE (NEGATIVE)
[2020-01-09 13:14] LABS: NT PRO BNP 70 pg/mL (<450)
[2020-01-09 13:16] LABS: TROPONIN I < 0.012 ng/mL
--- NOTE | 2020-01-09 13:25 | RADIOLOGY REPORT (SQ) ---
EXAM DESCRIPTION: CHEST SINGLE VIEW IMAGES COMPLETED DATE/TIME: 01/09/2020 1:12 pm REASON FOR STUDY: cough COMPARISON: 09/14/2019. EXAM PARAMETERS: NUMBER OF VIEWS: One view. TECHNIQUE: Single frontal radiographic view of the chest acquired. RADIATION DOSE: NA LIMITATIONS: None. FINDINGS: LUNGS AND PLEURA: No opacities, masses or pneumothorax. No pleural effusion. MEDIASTINUM AND HILAR STRUCTURES: No masses. Contour normal. HEART AND VASCULAR STRUCTURES: Heart normal in size. Normal vasculature. BONES: No acute findings. Degenerative changes in the spine. HARDWARE: None in the chest. Hardware in the cervical spine. OTHER: No other significant finding. IMPRESSION: NO ACUTE RADIOGRAPHIC FINDING IN THE CHEST. TECHNICAL DOCUMENTATION: JOB ID: [id number] 2010 [employer]- All Rights Reserved Reading location - IP/workstation name: [email or web address]
[2020-01-09 13:58] VITALS: BP 133/70
--- NOTE | 2020-01-09 20:02 | EKG REPORT ---
SEVERITY:- BORDERLINE ECG - SINUS RHYTHM BORDERLINE LEFT AXIS DEVIATION BORDERLINE T ABNORMALITIES, ANT-LAT LEADS : Confirmed by: Marya Stephenson MD 09-Jan-2020 20:01:21
== END 2020-01-09 14:41 | disposition home or self-care (01) ==
LOC: ER 11:30
DX: R05 Cough (principal); R06.02 Shortness of breath; R09.81 Nasal congestion; F17.210 Nicotine dependence, cigarettes, uncomplicated; E11.9 Type 2 diabetes mellitus without complications
CPT/HCPCS: 36415; 71045; 80053; 83880; 84484; 85025; 87804; 93005; 93010; 99284

== ENCOUNTER → 2020-02-12 | Outpatient (CLI) | payer MEDICARE ==
--- NOTE | 2020-02-12 13:23 | ER [facility] ASSESSMENT REPORT ---
Intake - In the Last 14 days Have you traveled outside [place]?: No Have you been in close contact with someone CONFIRMED: No Worked in Healthcare?: No - Symptoms Subjective Fever([place] feverish): Yes Chills: No Muscule Aches: Yes Runny Nose: No Sore Throat: No Cough (New or worsening chronic cough): Yes Shortness of breath: No Nausea or Vomiting: No Headache: Yes Abdominal Pain: No Diarrhea(3 or more loose stools in last 24 hours): No - Do you have any of the following Chronic lung disease: Asthma or emphysema or COPD: No Cystic Fibrosis: No Diabetes: Yes High Blood Pressure: No Cardiovascular Disease: Yes Cardiovascular Disease Comment: stents, HLD Chronic Kidney Disease: No Chronic Liver Disease: No Chronic blood disorder like Sickle Cell Disease: No Weak immune system due to disease or medication: Yes Neurologic condition that limits movement: No Developmental delay - Moderate to Severe: No Recent (within past 2 weeks) or current : No - Objective Temperature: 96.8 F Pulse Rate: 73 Respiratory Rate: 16 Blood Pressure: 126/61 O2 Sat by Pulse Oximetry: 96 Objective: Given above, testing performed: If Testing Performed: Test Specimen Type Sent to General - General Information source: Patient, Relative Notes: Patient presents to the [facility] for evaluation of possible coronavirus. Patient reports symptoms for the past 3-1/2 weeks of fever, body aches, cough and headache. Patient reports a previous history of spinal stenosis, dyslipidemia, cardiac stents, diabetes and lung nodules. - Related Data Allergies/Adverse Reactions: meperidine [From Demerol] Adverse Reaction (Verified 01/09/20 11:39) Past Medical History - General Information source: Patient, Relative - Social History Smoking Status: Current Every Day Smoker Lives with: Family Family History: Reviewed & Not Pertinent - Past Medical History Cardiac Medical History: Reports: Hx Coronary Artery Disease, Hx Hypercholesterolemia, Hx Hypertension Comment Only: Hx Heart Attack - "possible" hx Endocrine Medical History: Reports: Hx Diabetes Mellitus Type 2, Other - Has himoto Renal/ Medical History: Reports: Hx Benign Prostatic Hyperplasia. Denies: Hx Peritoneal Dialysis Past Surgical History: Reports: Hx Cardiac Catheterization, Hx Cholecystectomy, Hx Orthopedic Surgery, Hx Urinary Tract Surgery - Prostate scraping and bladder stents Physical Exam - Notes Notes: Full physical exam could not be performed due to covid 19 isolation protocols. Constitutional: Nontoxic appearance, no acute distress Eyes: Nonicteric, extraocular movements intact, sclera clear Cardiovascular: Heart rate and rhythm regular, no JVD Respiratory: Sounds clear bilaterally nonlabored breathing, no use of accessory muscles, no tachypnea Gastrointestinal: Abdomen not distended Muculoskeletal: Moves all extremities well Skin: Normal color Neuro: Awake alert oriented, normal speech Psych: Normal mood and affect Diagnostic Results Laboratory Results: The patient was evaluated during the global Covid 19 pandemic, and that diagnosis was suspected/considered upon their initial presentation. Their evaluation, treatment and testing was consistent with current guidelines for patients who present with complaints or symptoms that may be related to Covid 19. Patient presents with upper respiratory symptoms worrisome for possible Covid 19. Patient does not have emergency worrying symptoms such as difficulty breathing, shortness of breath, chest pain, pressure, confusion or cyanosis. Patient appears suitable for discharge as vital signs are stable and patient is nontoxic in appearance. Good return precautions have been discussed with patient, patient verbalized understanding and is agreeable with discharge plan o f care at this time. Patient Education/Counseling Counseling/Education: Patient was provided with discharge information including: As a person under investigation for Covid 19, the [place] department of Health and Human Services, division of public health advises you to adhere to the following guidance until your test results are reported to you. If your test result is positive, you will receive additional information from your provider and your local health department at that time. Remain at home until you are cleared by the health provider or public health authorities. Keep a log of visitors to your home, notify any visitors to your home of your isolation status. If you plan to move to a new address or leave the county, notify the local health department in your County. Call your doctor or seek care if you have an urgent medical need. Before seeking medical care, call ahead to get instructions from the provider before arriving at the medical office clinic or hospital. Notify them that you are being tested for the virus that causes Covid 19 so that arrangements can be made, as necessary, to prevent transmission to others in the healthcare setting. Next, notify the local health department in your county. If a medical emergency arises and you need to call 911, inform the first responders that you are being tested for the virus that causes Covid 19. Next, notify the local health department in your county. [facility] Discharge - Discharge Clinical Impression: COVID-19 screening Condition: Stable Disposition: Home; Selfcare
[2020-02-12 13:44] VITALS: BP 126/61
[2020-02-12 15:00] LABS: A TYPE INFLUENZA AG NEGATIVE (NEGATIVE); B INFLUENZA AG NEGATIVE (NEGATIVE)
== END ==
LOC: RDC 12:51
PROVIDERS: ATTEND Nurse Practitioner Family
DX: Z20.828 Contact with and (suspected) exposure to other viral communicable diseases (principal); R50.9 Fever, unspecified; R05 Cough; M79.10 Myalgia, unspecified site; R51 Headache; E11.9 Type 2 diabetes mellitus without complications; E78.5 Hyperlipidemia, unspecified; I25.10 Atherosclerotic heart disease of native coronary artery without angina pectoris; I10 Essential (primary) hypertension; E78.00 Pure hypercholesterolemia, unspecified; F17.200 Nicotine dependence, unspecified, uncomplicated; E06.3 Autoimmune thyroiditis; N40.0 Benign prostatic hyperplasia without lower urinary tract symptoms; Z88.6 Allergy status to analgesic agent
CPT/HCPCS: 87070; 87880; 87804; U0003; 87635; 99211

== ENCOUNTER 2020-05-21 07:29 | Emergency (ER) | payer MEDICARE ==
--- NOTE | 2020-05-21 08:45 | RADIOLOGY REPORT (SQ) ---
EXAM DESCRIPTION: KNEE LEFT 4 VIEW IMAGES COMPLETED DATE/TIME: 05/21/2020 8:31 am REASON FOR STUDY: fall injury COMPARISON: None. NUMBER OF VIEWS: Four views. TECHNIQUE: AP, lateral, and both oblique radiographic images acquired of the left knee. LIMITATIONS: None. FINDINGS: MINERALIZATION: Normal. BONES: No acute fracture dislocation. Tricompartment osteoarthritis with osteophytosis, joint space loss and subchondral sclerosis, greatest within the medial compartment. JOINT: Possible trace effusion. SOFT TISSUES: No radiopaque foreign body. Mild prepatellar soft tissue swelling. OTHER: No other significant finding. IMPRESSION: 1. No evidence of acute bony abnormality. Possible trace effusion. 2. Moderate tricompartment osteoarthritis, greatest medially. 3. Mild prepatellar soft tissue swelling. TECHNICAL DOCUMENTATION: JOB ID: [id number] 2010 [employer]- All Rights Reserved Reading location - IP/workstation name: [email or web address]
--- NOTE | 2020-05-21 08:49 | RADIOLOGY REPORT (SQ) ---
EXAM DESCRIPTION: SHOULDER LEFT 2 OR MORE VIEWS IMAGES COMPLETED DATE/TIME: 05/21/2020 8:31 am REASON FOR STUDY: fall injury COMPARISON: None. NUMBER OF VIEWS: Three views. TECHNIQUE: Internal rotation, external rotation, and Y view images acquired of the left shoulder. LIMITATIONS: None. FINDINGS: MINERALIZATION: Normal. BONES: No acute fracture. No suspicious osseous lesion. Glenohumeral and Acromioclavicular osteophy tosis. JOINTS: No dislocation. Borderline widening at the acromioclavicular joint space measuring 8 mm. VISUALIZED LUNGS AND RIBS: No pneumothorax. No rib fracture. SOFT TISSUES: No radiopaque foreign body. OTHER: No other significant finding. IMPRESSION: 1. No evidence of acute bony abnormality of the left shoulder. Borderline acromioclavi cular joint space widening may represent Grade 1 ligamentous injury. 2. Glenohumeral acromioclavicular osteoarthropathy. TECHNICAL DOCUMENTATION: JOB ID: [id number] 2010 [employer]- All Rights Reserved Reading location - IP/workstation name: [email or web address]
--- NOTE | 2020-05-21 08:51 | RADIOLOGY REPORT (SQ) ---
EXAM DESCRIPTION: CT HEAD WITHOUT IMAGES COMPLETED DATE/TIME: 05/21/2020 8:40 am REASON FOR STUDY: head injury, on blood thinners COMPARISON: None. TECHNIQUE: Axial images acquired through the brain without intravenous contrast. Images reviewed wi th bone, brain and subdural windows. Additional sagittal and coronal reconstructions were generated. Images stored on PACS. All CT scanners at this facility use dose modulation, iterative reconstruction, and/or weight based d osing when appropriate to reduce radiation dose to as low as reasonably achievable (ALARA). [facility]: Dose Right [facility]: CareDose [facility]: Dose Right [facility]: Teradose 4D [facility]: [employer] RADIATION DOSE: CT Rad equipment meets quality standard of care and radiation dose reduction techniq ues were employed. CTDIvol: 53.2 mGy. DLP: 991 mGy-cm.mGy. LIMITATIONS: None. FINDINGS: VENTRICLES: Prominent. CEREBRUM: No masses. No hemorrhage. No midline shift. Areas of low density in the white matter mos t likely due to chronic micro-vascular ischemic change. No evidence for acute infarction. CEREBELLUM: No masses. No hemorrhage. No alteration of density. No evidence for acute infarction. EXTRAAXIAL SPACES: Age-related involutional change. No fluid collections. No masses. ORBITS AND GLOBE: No intra- or extraconal masses. Normal contour of globe without masses. Prior cat aract surgery. CALVARIUM: No fracture. PARANASAL SINUSES: No fluid or mucosal thickening. SOFT TISSUES: No mass or hematoma. OTHER: No other significant finding. IMPRESSION: CHRONIC CHANGES OF ATROPHY AND MICROVASCULAR ISCHEMIA. NO ACUTE PROCESS. EVIDENCE OF ACUTE STROKE: NO. TECHNICAL DOCUMENTATION: JOB ID: [id number] Quality ID # [id number]: Final reports with documentation of one or more dose reduction techniques (e.g., Au tomated exposure control, adjustment of the mA and/or kV according to patient size, use of iterative reconstruction technique) 2010 [employer]- All Rights Reserved Reading location - IP/workstation name: [email or web address]
--- NOTE | 2020-05-21 09:01 | RADIOLOGY REPORT (SQ) ---
EXAM DESCRIPTION: CT CERVICAL SPINE WITHOUT IMAGES COMPLETED DATE/TIME: 05/21/2020 8:40 am REASON FOR STUDY: head injury, on blood thinners COMPARISON: 09/14/2019 TECHNIQUE: Axial images acquired through the cervical spine without intravenous contrast. Images re viewed with lung, soft tissue and bone windows. Reconstructed coronal and sagittal MPR images review ed. Images stored on PACS. All CT scanners at this facility use dose modulation, iterative reconstruction, and/or weight based d osing when appropriate to reduce radiation dose to as low as reasonably achievable (ALARA). [facility]: Dose Right [facility]: CareDose [facility]: Dose Right [facility]: Teradose 4D [facility]: [employer] RADIATION DOSE: CT Rad equipment meets quality standard of care and radiation dose reduction techniq ues were employed. CTDIvol: 22.7 mGy. DLP: 441 mGy-cm. mGy. LIMITATIONS: None. FINDINGS: ALIGNMENT: Straightening of the normal cervical lordosis, likely positional. MINERALIZATION: Normal. VERTEBRAL BODIES: No fracture identified. DISCS: Mild multilevel disc height loss with fusion hardware at C5-6. Anterior ligament calcificatio n and posterior disc osteophyte complexes at multiple levels greatest at C3-4 and C5-6 with resultant at least moderate osseous spinal canal narrowing. Evaluation limited without intrathecal contrast. FACETS, LATERAL MASSES, POSTERIOR ELEMENTS: No facet fracture or dislocation. Multilevel facet arthr opathy greatest at C3-4 on the left and C4-5 on the right. Uncovertebral and facet hypertrophy causi ng multilevel neural foraminal narrowing greatest at C5-6 bilaterally. HARDWARE: C5-6 anterior fusion hardware and interbody spacer. VISUALIZED RIBS: No fractures. LUNG APICES AND SOFT TISSUES: No significant or acute findings. OTHER: No other significant finding. IMPRESSION: 1. No evidence of acute bony abnormality of the cervical spine. 2. Multilevel degenerative and postsurgical changes as detailed above. There is multilevel anterior ligament calcification and posterior disc osteophyte complexes causing at least moderate spinal jolly l stenosis greatest at C5-6, similar to prior. TECHNICAL DOCUMENTATION: JOB ID: [id number] Quality ID # [id number]: Final reports with documentation of one or more dose reduction techniques (e.g., Au tomated exposure control, adjustment of the mA and/or kV according to patient size, use of iterative reconstruction technique) 2010 [employer]- All Rights Reserved Reading location - IP/workstation name: [email or web address]
--- NOTE | 2020-05-21 12:04 | ER Document Report ---
ED General - General Chief Complaint: Fall Stated Complaint: FALL/KNEE,SHOULDER,HEAD PAIN Primary Care Provider: ASHLI HOLDEN MD [Primary Care Provider] - Follow up as needed Mode of Arrival: Ambulatory Information source: Patient, Relative Notes: Patient is a 74-year-old male presenting to the emergency department chief complaint of multiple areas of pain secondary to fall. Patient states he got up in the middle of the night and slipped and fell. Patient states that he does have a history of frequent falls. Daughter is at the bedside and confirms same. She states her father is acting at his baseline but does believe that he hit his head during the fall. At time of presentation patient is complaining of aches and pains to the left knee left shoulder head neck and back. Patient is alert and oriented body in no acute distress. TRAVEL OUTSIDE OF THE [place] IN LAST 30 DAYS: No - HPI Onset: Yesterday Onset/Duration: Sudden Quality of pain: Achy Severity: Moderate Pain Level: 2 Associated symptoms: None Exacerbated by: Movement Relieved by: Denies Similar symptoms previously: No Recently seen / treated by doctor: No - Related Data Allergies/Adverse Reactions: meperidine [From Demerol] Adverse Reaction (Verified 05/21/20 07:51) Home Medications: plavix Past Medical History - General Information source: Patient, Relative - Social History Smoking Status: Current Some Day Smoker Chew tobacco use (# tins/day): No Frequency of alcohol use: None Drug Abuse: None Lives with: Family Family History: Reviewed & Not Pertinent Patient has suicidal ideation: No Patient has homicidal ideation: No - Past Medical History Cardiac Medical History: Reports: Hx Coronary Artery Disease, Hx Hypercholeste rolemia, Hx Hypertension Comment Only: Hx Heart Attack - "possible" hx Endocrine Medical History: Reports: Hx Diabetes Mellitus Type 2 Renal/ Medical History: Reports: Hx Benign Prostatic Hyperplasia. Denies: Hx Peritoneal Dialysis Past Surgical History: Reports: Hx Cardiac Catheterization, Hx Cholecystectomy, Hx Orthopedic Surgery, Hx Urinary Tract Surgery - Prostate scraping and bladder stents Review of Systems - Review of Systems Constitutional: No symptoms reported EENT: No symptoms reported Cardiovascular: No symptoms reported Respiratory: No symptoms reported Gastrointestinal: No symptoms reported Genitourinary: No symptoms reported Male Genitourinary: No symptoms reported Musculoskeletal: See HPI Skin: No symptoms reported Hematologic/Lymphatic: No symptoms reported Neurological/Psychological: No symptoms reported Physical Exam - Vital signs Vitals: Temp Pulse Resp BP Pulse Ox 98.0 F 94 16 114/84 100 05/21/20 07:32 05/21/20 07:32 05/21/20 07:32 05/21/20 07:32 05/21/20 07:32 - Notes Notes: PHYSICAL EXAMINATION: GENERAL: Well-appearing, well-nourished and in no acute distress. HEAD: Atraumatic, normocephalic. EYES: Pupils equal round and reactive to light, extraocular movements intact, sclera anicteric, conjunctiva are normal. ENT: nares patent, oropharynx clear without exudates. Moist mucous membranes. NECK: Normal range of motion, supple without lymphadenopathy, no appreciable JVD LUNGS: Lungs clear to auscultation bilaterally and equal. No wheezes rales or rhonchi. HEART: Regular rate and rhythm without murmurs ABDOMEN: Soft, nontender, normal bowel sounds. No guarding, no rebound. No masses appreciated. EXTREMITIES: Active full range of motion, no pitting or edema. No cyanosis. 2+ pulses x4, patient's left knee is swollen and erythematous anteriorly tender but moderate range of motion sensation is intact distally left shoulder has good range of motion however patient has point tenderness medially to the left shoulder in the region of the clavicle, patient's head shows no signs of trauma neck shows no signs of trauma back is tender to palpation but shows no obvious signs of trauma. NEUROLOGICAL: No focal neurological deficits. Moves all extremities spontaneously and on command. SKIN: Warm, Dry, and intact. Normal turgor, no rashes or lesions noted. Course - Re-evaluation Re-evalutation: 05/21/20 12:06 I discussed the radiologic results with patient and family. They understand that there is a possibility of a left-sided AC joint separation but otherwise patient just has contusions. I instructed rest ice and elevate as tolerated and follow-up with her primary care rider. Patient is agreeable with care plan will take Tylenol and Motrin as needed for pain management. Patient will be discharged home in stable condition. - Vital Signs Vital signs: Temp Pulse Resp BP Pulse Ox 98.0 F 94 16 114/84 100 05/21/20 07:52 05/21/20 07:32 05/21/20 07:32 05/21/20 07:32 05/21/20 07:32 - Diagnostic Test Radiology reviewed: Reports reviewed Discharge - Discharge Clinical Impression: Multiple contusions Accidental fall Qualifiers: Encounter type: initial encounter Qualified Code(s): W19.XXXA - Unspecified fall, initial encounter AC separation Qualifiers: Encounter type: initial encounter Laterality: left Qualified Code(s): S43.102A - Unspecified dislocation of left acromioclavicular joint, initial encounter Condition: Stable Disposition: HOME, SELF-CARE Additional Instructions: You have been found to have multiple contusions please rest ice and elevate the extremities as possible. Please take Tylenol and Motrin as needed for pain management. There is a question of a minor left-sided AC separation. Please follow-up with your primary care provider or orthopedics for reevaluation in approximately 1 week. Referrals: ASHLI HOLDEN MD [Primary Care Provider] - Follow up as needed
[2020-05-21 12:09] VITALS: BP 149/75
== END 2020-05-21 12:14 | disposition home or self-care (01) ==
LOC: ER 07:29
DX: S43.102A Unspecified dislocation of left acromioclavicular joint, initial encounter (principal); M25.562 Pain in left knee; M25.512 Pain in left shoulder; M79.89 Other specified soft tissue disorders; R51 Headache; M54.2 Cervicalgia; M54.9 Dorsalgia, unspecified; W01.0XXA Fall on same level from slipping, tripping and stumbling without subsequent striking against object, initial encounter; Z88.8 Allergy status to other drugs, medicaments and biological substances; F17.200 Nicotine dependence, unspecified, uncomplicated; I25.10 Atherosclerotic heart disease of native coronary artery without angina pectoris; I10 Essential (primary) hypertension; E11.9 Type 2 diabetes mellitus without complications; Z79.02 Long term (current) use of antithrombotics/antiplatelets
CPT/HCPCS: 70450; 72125; 99284